=== PATIENT | male | born 1960 | race Caucasian/White ===

== ENCOUNTER 2020-07-08 04:09 | Emergency (ER) | payer OTHER ==
[~2020-07-08] VITALS: Ht 188 cm; Wt 129.5 kg
[2020-07-08 04:49] VITALS: BP 149/78
[2020-07-08 04:53] LABS: BILIRUBIN,URINE NEGATIVE (NEG); CLARITY,URINE CLEAR; COLOR,URINE YELLOW; NITRITE,URINE NEGATIVE (NEG); PROTEIN,URINE NEGATIVE (NEG-TRACE); UROBILINOGEN,URINE 0.2 mg/dL (0.2 mg/dL)
[2020-07-08 04:59] LABS: SQUAMOUS EPITHELIAL CELL,UR OCC /LPF
[2020-07-08 05:00] LABS: AMORPHOUS SEDIMENT,UR PRESENT /HPF; BACTERIA,URINE 0 /HPF (0-FEW); WBC,URINE RARE /HPF (0-4)
[2020-07-08 05:28] LABS: BASO % 0 % (0-3); EOS # 0.1 x10^3/uL (0.0-0.7); EOS % 1 % (0-3); HEMATOCRIT 47.1 % (39.0-53.0); HEMOGLOBIN 16.1 g/dL (13.0-17.5); LYMPH # 1.2 x10^3/uL (1.0-4.8); LYMPH % 10 % (24-48); MEAN CORPUSCULAR HEMOGLOBIN 31 pg (25-35); MEAN CORPUSCULAR HGB CONC 34 g/dL (31-37); MEAN CORPUSCULAR VOLUME 92 fL (79-100); MONO # 0.5 x10^3/uL (0.0-1.1); MONO % 5 % (0-9); NEUT % 84 % (31-73); PLATELET COUNT 184 x10^3/uL (140-400); RED BLOOD COUNT 5.15 x10^6/uL (4.30-5.70); WHITE BLOOD COUNT 11.8 x10^3/uL (4.0-11.0)
[2020-07-08] MEDS ORDERED: IV NORMAL SALINE 1000ML BAG 1,000 ML IV ONE (05:30)
[2020-07-08 05:40] LABS: CALCIUM 8.4 mg/dL (8.5-10.1); CREATININE 1.3 mg/dL (0.7-1.3); GFR 56.3; POTASSIUM 4.5 mmol/L (3.5-5.1)
--- NOTE | 2020-07-08 05:42 | RAD ---
Study: CT abdomen/pelvis without intravenous contrast Indication: Flank pain. History of kidney stones. Comparison: None. Technique: Helical CT imaging performed of the abdomen and pelvis without the use of intravenous contrast. Sagittal and coronal reformats were obtained. One or more of the following individualized dose reduction techniques were utilized for this examination: 1. Automated exposure control 2. Adjustment of the mA and/or kV according to patient size 3. Use of iterative reconstruction technique. Findings: Inherently limited evaluation without intravenous contrast. Chest: Small hiatal hernia. Mild circumferential wall thickening of the distal esophagus could be related to chronic reflux. Ill-defined nodularity at the basilar right lower lobe, image 28 series 2, collectively measuring up to 10 mm. A few additional solitary pulmonary nodules such as within the right middle lobe on image 9 series 2, the larger of which measures up to 6 mm. Nodule within the lingula on image 7 series 2 measures 5 mm. Liver: Unremarkable. Gallbladder/Biliary Tree: No CT findings of acute cholecystitis. Pancreas: Within normal limits. Spleen: Normal in size. Adrenal Glands: Small right adrenal adenoma. No dedicated follow-up is needed given internal density of -8 Hounsfield units. Kidneys/Ureters/Bladder: Left-sided hydroureteronephrosis and perinephric/periureteral fat stranding in the setting of either an impacted stone at an edematous ureterovesicular junction versus a recently passed stone measuring 4.5 mm. Small upper and lower pole intrarenal stones on the right. No right-sided collecting system dilatation. Reproductive Organs: The prostate is prominent in size at 5.5 cm transverse. Central dystrophic mineralization. Colon: Scattered diverticuli without diverticulitis. Appendix: Normal. Small Bowel: Nonobstructed. Stomach: Poorly evaluated due to underdistention. Vasculature: Mild calcific atherosclerosis. Nonaneurysmal aorta. Lymph Nodes: Mildly prominent but reactive appearing inguinal lymph nodes with maintained fatty tong. Peritoneum and Body Wall: No free fluid or gas. Faint haziness of the mesentery along the vascular pedicle but no intermixed lymphadenopathy to warrant any concern. Bones: Multifocal degenerative changes and additional chronic findings to include bilateral pars defects at L4 with grade 1 anterolisthesis of L4 on L5. Osseous neural foraminal encroachment greatest on the right at L4-L5. Central canal narrowing greatest at L3-L4 down to the mid aspect of L4. Miscellaneous: None. Impression: 1. Left-sided hydroureteronephrosis and obstructive uropathy in the setting of a 4.5 mm stone favored impacted within an edematous ureterovesicular junction as opposed to recently passed (image 197 series 2). Small intrarenal stones on the right without obstruction. 2. Several pulmonary nodules at both lower lungs, as detailed above. Per Fleischner guidelines, 3-[address] follow-up is recommended. 3. Several additional chronic findings as detailed above. Electronically signed by: ERLIN WEBB MD (07/08/2020 5:39 AM) [id number]
[2020-07-08] MEDS ORDERED: KETOROLAC 30 MG/ML VIAL. IVP ONE (05:45)
[2020-07-08] MEDS ORDERED: fentaNYL PF VIAL 100 MCG/2 ML VIAL IVP ONE (05:45)
[2020-07-08] MEDS ORDERED: ONDANSETRON PF 4 MG/2 ML VIAL. IVP ONE (06:00)
[2020-07-08] MEDS ORDERED: OXYC1TAB15 PO (06:35)
[2020-07-08] MEDS ORDERED: ONDA4TAB7 PO (06:35)
[2020-07-08] MEDS ORDERED: KETO10TA PO (06:35)
--- NOTE | 2020-07-08 06:39 | PHYS DOC ---
Past Medical History Past Medical History: Diabetes-Type II Additional Past Medical Histor: DVT Past Surgical History: Other Additional Past Surgical Histo: KNEE, FINGER SX, NOSE SX. Smoking Status: Former Smoker Alcohol Use: Occasionally General Adult EDM: Chief Complaint: FLANK PAIN HPI: HPI: Patient is a 59-year-old male who presents to the emergency room complaining of severe left flank pain that radiates into his lower abdomen. He has been having nausea and vomiting. This woke him up suddenly around 1230 this morning. He has had nothing like this previously. He states that it feels like sharp stabbing pain. He feels like he needs to urinate all the time. Review of Systems: Review of Systems: General: Denies fever, chills, sweats, fatigue Eyes: Denies drainage, blurred vision, eye redness HENT: Denies rhinorrhea, sore throat, earache Respiratory: Denies cough, shortness of breath, wheezing Cardiac: Denies edema, palpitations, chest pain GI: Reports nausea, vomiting, flank pain, back pain, abdominal pain MSK: Denies neck pain, back pain Skin: Denies rash, jaundice Neuro: Denies headache, dizziness Psychiatric: Denies SI/HI Heart Score: Risk Factors: Risk Factors: DM, Current or recent (<one month) smoker, HTN, HLP, family history of CAD, obesity. Risk Scores: Score 0 - 3: 2.5% MACE over next 6 weeks - Discharge Home Score 4 - 6: 20.3% MACE over next 6 weeks - Admit for Clinical Observation Score 7 - 10: 72.7% MACE over next 6 weeks - Early Invasive Strategies Current Medications: Current Medications Medications (Trade) Dose Ordered Sig/[facility] Start Time Stop Time Status Last Admin Dose Admin Fentanyl Citrate (Fentanyl 2ml Vial) 50 mcg 1X ONCE 07/08/20 05:45 07/08/20 05:46 DC 07/08/20 05:42 50 MCG Ketorolac Tromethamine (Toradol 30mg Vial) 30 mg 1X ONCE 07/08/20 05:45 07/08/20 05:46 DC 07/08/20 05:53 30 MG Ondansetron HCl (Zofran) 4 mg 1X ONCE 07/08/20 06:00 07/08/20 06:01 DC 07/08/20 05:53 4 MG Sodium Chloride 1,000 ml @ 1,000 mls/hr 1X ONCE 07/08/20 05:30 07/08/20 06:29 07/08/20 05:44 1,000 MLS/HR Allergies: Allergies: Allergies Coded Allergies Type Severity Reaction Last Updated Verified morphine Allergy Mild ANXIOUS, COLD SWEAT 07/08/20 Yes Physical Exam: PE: General: Awake, alert, mild distress, mild diaphoresis. Well Nourished, well hydrated. Cooperative HEENT: Atraumatic, EOMI, PERRL, airway patent, moist oral mucosa Neck: Supple, trachea midline Respiratory: CTA bilaterally, normal effort, no wheezing/crackles CV: RRR, no murmur, cap refill <2 GI: Soft, nondistended, nontender, no masses MSK: No obvious deformities Skin: Warm, dry, intact Neuro: A&O x3, speech NL, sensory and motor grossly intact, no focal deficits Psych: Normal affect, normal mood, not suicidal or homicidal Current Patient Data: Labs: Laboratory Tests Test 07/08/20 04:17 07/08/20 05:19 Urine Collection Type Unknown Urine Color Yellow Urine Clarity Clear Urine pH 5.0 (<5.0-8.0) Urine Specific [place] 1.025 (1.000-1.030) Urine Protein Negative mg/dL (NEG-TRACE) Urine Glucose (UA) Negative mg/dL (NEG) Urine Ketones (Stick) Negative mg/dL (NEG) Urine Blood Moderate (NEG) Urine Nitrite Negative (NEG) Urine Bilirubin Negative (NEG) Urine Urobilinogen Dipstick 0.2 mg/dL (0.2 mg/dL) Urine Leukocyte Esterase Negative (NEG) Urine RBC 11-20 /HPF (0-2) Urine WBC Rare /HPF (0-4) Urine Squamous Epithelial Cells Occ /LPF Urine Amorphous Sediment Present /HPF Urine Bacteria 0 /HPF (0-FEW) Urine Mucus Mod /LPF White Blood Count 11.8 x10^3/uL (4.0-11.0) H Red Blood Count 5.15 x10^6/uL (4.30-5.70) Hemoglobin 16.1 g/dL (13.0-17.5) Hematocrit 47.1 % (39.0-53.0) Mean Corpuscular Volume 92 fL (79-100) Mean Corpuscular Hemoglobin 31 pg (25-35) Mean Corpuscular Hemoglobin Concent 34 g/dL (31-37) Red Cell Distribution Width 13.0 % (11.5-14.5) Platelet Count 184 x10^3/uL (140-400) Neutrophils (%) (Auto) 84 % (31-73) H Lymphocytes (%) (Auto) 10 % (24-48) L Monocytes (%) (Auto) 5 % (0-9) Eosinophils (%) (Auto) 1 % (0-3) Basophils (%) (Auto) 0 % (0-3) Neutrophils # (Auto) 10.0 x10^3/uL (1.8-7.7) H Lymphocytes # (Auto) 1.2 x10^3/uL (1.0-4.8) Monocytes # (Auto) 0.5 x10^3/uL (0.0-1.1) Eosinophils # (Auto) 0.1 x10^3/uL (0.0-0.7) Basophils # (Auto) 0.0 x10^3/uL (0.0-0.2) Sodium Level 142 mmol/L (136-145) Potassium Level 4.5 mmol/L (3.5-5.1) Chloride Level 106 mmol/L (98-107) Carbon Dioxide Level 27 mmol/L (21-32) Anion Gap 9 (6-14) Blood Urea Nitrogen 15 mg/dL (8-26) Creatinine 1.3 mg/dL (0.7-1.3) Estimated GFR (Cockcroft-Gault) 56.3 Glucose Level 203 mg/dL (70-99) H Calcium Level 8.4 mg/dL (8.5-10.1) L Laboratory Tests 07/08/20 05:19 Laboratory Tests 07/08/20 05:19 Vital Signs: Vital Signs Date Time Temp Pulse Resp B/P (MAP) Pulse Ox O2 Delivery O2 Flow Rate FiO2 07/08/20 05:42 18 96 Room Air 07/08/20 04:49 98.8 47 149/78 (101) 98.8 EKG: EKG: [] Radiology/Procedures: Radiology/Procedures: [] Course & Med Decision Making: Course & Med Decision Making Pertinent Labs and Imaging studies reviewed. (See chart for details) Patient is 5-year-old male who presents to the emergency room complaining of f lank pain, urinary frequency, vomiting. Patient's presentation is concerning for a kidney stone. CBC, BMP, UA, CT abdomen pelvis without contrast was ordered. Patient was given fluids, Toradol, fentanyl. Patient is feeling significantly better. He has a 4.5 mm stone. Patient would like to go home. I have discussed with him doing lots of fluids. We will discharge him home with Toradol, Zofran, Percocet. I have discussed with him that he needs to follow-up with urology in the next few days. Patient will make an appointment today. Patient's test results and vitals while in the ED were fully reviewed and discussed with the patient. Patient is stable and at this time does not need admission to the hospital. We have discussed strict return precautions and the importance of following up with their Primary Care Physician. Patient stated understanding and was given an opportunity to ask any questions. Patient is in agreement with plan. Dragon Disclaimer: Dragbrandi Disclaimer: This electronic medical record was generated, in whole or in part, using a voice recognition dictation system. Departure Departure Impression: Primary Impression: Kidney stone Disposition: HOME, SELF-CARE Condition: IMPROVED Referrals: JENNIFER BAKER DO (PCP) Patient Instructions: Kidney Stones, [id number] Additional Instructions: Please follow up with Urology [facility] Ketorolac Tromethamine (KETOROLAC TROMETHAMINE) 10 Mg Tablet 1 TAB PO TID PRN for MODERATE PAIN 4-6, #15 TAB Prov: YULY CULVER MD 07/08/20 Ondansetron Hcl (ZOFRAN) 4 Mg Tablet 1 TAB PO PRN Q6-8HRS for nausea, #12 TAB Prov: YULY CULVER MD 07/08/20 Oxycodone/Apap 5-325 (PERCOCET 5-325 MG TABLET ) 1 Each Tablet 1 TAB PO PRN Q6HRS PRN for PAIN, #12 TAB 0 Refills Prov: YULY CULVER MD 07/08/20 Justicifation of Admission Dx: Justifications for Admission: Justification of Admission Dx: N/A YULY CULVER MD Jul 08, 2020 06:39
== END 2020-07-08 07:15 | disposition home or self-care (01) ==
LOC: ER 04:21
DX: N20.0 Calculus of kidney (principal); R10.32 Left lower quadrant pain; R11.2 Nausea with vomiting, unspecified; E11.9 Type 2 diabetes mellitus without complications; Z86.718 Personal history of other venous thrombosis and embolism; Z98.890 Other specified postprocedural states; Z87.891 Personal history of nicotine dependence; Z88.6 Allergy status to analgesic agent
CPT/HCPCS: 36415; 74176; 80048; 81001; 85025; 96361; 96374; 96375; 99284; J1885; J2405; J3010; J7030